=== PATIENT | female | born 1995 | race Two or more races ===

== ENCOUNTER → 2023-06-12 | Emergency (ER) | payer OTHER ==
[~2023-06-12] VITALS: Ht 157.5 cm; Wt 56.7 kg
[~2023-06-12] MED LIST: FLUCONAZOLE200 MG; MONISTAT 745 GM
== END | disposition home or self-care (01) ==
LOC: ER 05:59
PROVIDERS: General Practice
DX: R31.9 Hematuria, unspecified (principal); Z20.822 Contact with and (suspected) exposure to COVID-19